=== PATIENT | female | born 1950 | race Two or more races ===

== ENCOUNTER 2019-05-31 10:00 | Day surgery (SDC) | payer OTHER | END 2019-05-31 14:15 | disposition home or self-care (01) | LOC: AMB-ENDOS 10:00 | DX: K57.32 Diverticulitis of large intestine without perforation or abscess without bleeding (principal); K64.1 Second degree hemorrhoids ==

== ENCOUNTER 2021-11-06 11:38 | Inpatient (IN) | payer OTHER ==
[~2021-11-06] VITALS: Ht 165.1 cm; Wt 84.4 kg
[2021-11-06] MEDS ORDERED: SYNTHROID112 MCG PO (12:01)
[2021-11-06] MEDS ORDERED: METFORMIN HCL500 M4 PO (12:01)
[2021-11-06] MEDS ORDERED: RESTORIL15 MG PO (12:01)
[2021-11-06] MEDS ORDERED: ATORVASTATIN CA40 MG PO (12:01)
[2021-11-06] MEDS ORDERED: DILTIAZEM 24HR240 MG PO (12:02)
--- NOTE | 2021-11-06 12:06 | NUR ---
PTE ALERTA,ESTABLE Y ORIENTADA.ESTA REFIERE QUE EN LA MANANA COMENZO A TENER UN [place] RECTAL.FUE OPERARA POR EL
--- NOTE | 2021-11-06 14:02 | NUR ---
SE ORIENTA PTE SOBRE EL TRTAMIENTO ORDENDO POR LA LUIS CUMMINGS PTE ALERTA Y CONCIENTE POR 3, RN REAL REALIZA MUESTRAS DE LABORATRORIO Y SE ADMINISTRAN MEDICAMENTO MICHAELLE ORDENADO PTE SE MANTIENE EN OBSERVACION.
--- NOTE | 2021-11-06 16:09 | NUR ---
3:00PM SE RECIBE PTE ALERTA Y ORIENTADA X3 EN GAVIN CON BARANDAS ELEVADAS. SE COLOCA PTE EN CAMA CON BARANDAS ELEVADAS. SE CONECTA PTE A MONITOR CARDIACO Y OXIMETRIA. SE RECIBE PTE CANALIZADA EN BRAZO DERECHO ANGIO #20 AREA ANNALISA DE EDEMA Y DE ENROJECIMIENTO. PTE CON DRIP .9NSS BAJANDO A 100ML/HR. 3:30PM SE LLAMA A FARMACIA PARA SABER STATUS DE DRIP DE SANDOSTATINA 1,250MCG. PERSONAL DE FARMACIA REFIERE QUE TRAERAN EL MEDICAMENTO A UNIDAD DE CRITICO. 3:45PM SE CANALIZA EN MANO DERECHA ANGIO #18 AREA ANNALISA DE EDEMA Y DE ENROJECIMIENTO.SE EDUCA A PTE SOBRE ORDEN DE U/A PENDIENTE.
--- NOTE | 2021-11-06 20:09 | NUR ---
4:30PM PTE PRESENTA MELENA NAVA BRILLANTE. SE SHE CAMBIO DE PANAL.SE NOTIFICA A . SE LE COLOCA CANULA NASAL A 3L MICHAELLE ORDEN MEDICA. 5:00PM PTE PRESENTA MELENA Y SE SHE CAMBIO DE PANAL. SE NOTIFICA A DR. PATEL.SE LE TG MUESTRA CBC BAJO MEDIDAS ASEPTICAS Y SE ENVIA A LABORATORIO MICHAELLE ORDEN VERBAL DE . SE D/C DRIP .9NSS Y SE COLOCA DRIP R/L A 150ML/HR MICHAELLE ORDEN VERBAL DE . 7:30PM SE SHE CAMBIO DE PANAL POR MELENA.
[2021-11-08] MEDS ORDERED: LOSARTAN POTAS100 MG (11:52)
[2021-11-08] MEDS ORDERED: COMBIGAN EYE DRO5 ML (11:52)
[2021-11-08] MEDS ORDERED: ST. JOSEPH ASPI81 M2 (11:52)
[2021-11-08] MEDS ORDERED: SUCRALFATE1 GM (11:53)
[2021-11-08] MEDS ORDERED: PANTOPRAZOLE SO40 MG (11:53)
[2021-11-08] MEDS ORDERED: TIZANIDINE HCL4 M1 (11:53)
[2021-11-08] MEDS ORDERED: TRAMADOL HCL50 MG (11:53)
[2021-11-08] MEDS ORDERED: SIMVASTATIN20 MG (11:53)
[2021-11-08] MEDS ORDERED: GABAPENTIN600 MG (11:53)
[2021-11-08] MEDS ORDERED: CLONAZEPAM1 MG (11:53)
[2021-11-08] MEDS ORDERED: MONTELUKAST SOD10 MG (11:53)
[2021-11-08] MEDS ORDERED: HYFIBER WI12 GM/302 (11:54)
[2021-11-08] MEDS ORDERED: DICLOFENAC POTA50 MG (11:54)
[2021-11-08] MEDS ORDERED: ABATINEX680 MG (11:54)
[2021-11-12] MEDS ORDERED: METFORMIN HCL500 M4 PO (14:36)
[2021-11-12] MEDS ORDERED: PANTOPRAZOLE SO40 MG PO (14:36)
[2021-11-12] MEDS ORDERED: DILTIAZEM 24HR240 MG PO (14:36)
[2021-11-12] MEDS ORDERED: ATORVASTATIN CA40 MG PO (14:36)
[2021-11-12] MEDS ORDERED: LOSARTAN POTAS100 MG PO (14:36)
[2021-11-12] MEDS ORDERED: SYNTHROID112 MCG PO (14:36)
== END 2021-11-12 20:09 | disposition home or self-care (01) | DRG 377 ==
LOC: ER 11:38 → ICU-2 22:24 → MEDJ 11-09 14:34
PROVIDERS: ADMIT Internal Medicine Geriatric Medicine; ATTEND Internal Medicine Geriatric Medicine
PROC: 0DB68ZX Excision of Stomach, Via Natural or Artificial Opening Endoscopic, Diagnostic (ICD-10-PCS; principal; 2021-11-06)
PROC: 0DBM8ZX Excision of Descending Colon, Via Natural or Artificial Opening Endoscopic, Diagnostic (ICD-10-PCS; 2021-11-06)
PROC: 30233N1 Transfusion of Nonautologous Red Blood Cells into Peripheral Vein, Percutaneous Approach (ICD-10-PCS; 2021-11-06)
PROC: 02HV33Z Insertion of Infusion Device into Superior Vena Cava, Percutaneous Approach (ICD-10-PCS; 2021-11-06)
DX: K62.5 Hemorrhage of anus and rectum (principal); R57.1 Hypovolemic shock; K57.30 Diverticulosis of large intestine without perforation or abscess without bleeding; D64.9 Anemia, unspecified; K64.2 Third degree hemorrhoids; K31.7 Polyp of stomach and duodenum; D69.6 Thrombocytopenia, unspecified; I10 Essential (primary) hypertension; K31.3 Pylorospasm, not elsewhere classified